=== PATIENT | male | born 1945 | race Caucasian/White ===

== ENCOUNTER 2018-04-21 10:58 | Emergency (ER) | payer MEDICARE ==
[2018-04-21 13:36] VITALS: BP 190/85
--- NOTE | 2018-04-21 14:07 | XRAY Report ---
Reason: fall, pain Procedure Date: 04/21/2018 Accession Number: [id number] / [id number] Procedure: XR - Hip w/Pelvis 2-3V RT CPT Code: FULL RESULT: EXAM: RIGHT HIP RADIOGRAPHY EXAM DATE: 04/21/2018 01:56 PM. CLINICAL HISTORY: Fall, pain. COMPARISON: None. TECHNIQUE: 2 views. 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 There is bone cement around the femoral component of the prosthesis. There is no abnormal lucency at bone hardware interface. There is no fracture. Joints: Alignment appears satisfactory. Soft Tissues: Normal. No soft tissue swelling. IMPRESSION: No acute fracture or subluxation. Right hip hemiarthroplasty. RADIA
--- NOTE | 2018-04-21 14:16 | ED Physician Documentation ---
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 denies: Neck pain, Back pain Neurologic: denies: Generalized weakness PD PAST MEDICAL HISTORY - Present Medications Home Medications: Ambulatory Orders Medication Instructions Recorded Confirmed Atenolol 1 tab PO DAILY 04/21/18 04/21/18 Hydrochlorothiazide 1 tab PO DAILY 04/21/18 04/21/18 Losartan [Cozaar] 1 tab PO DAILY 04/21/18 04/21/18 Omeprazole [PriLOSEC] 20 mg PO DAILY 04/21/18 04/21/18 Oxycodone HCl/Acetaminophen 1 each PO Q6H PRN #7 tablet 04/21/18 [Percocet 5-325 mg Tablet] Simvastatin 10 mg PO DAILY 04/21/18 04/21/18 Tamsulosin HCl [Flomax] 1 tab PO DAILY 04/21/18 04/21/18 - Allergies Allergies/Adverse Reactions: Allergies Allergy/AdvReac Type Severity Reaction Status Date / Time lisinopril AdvReac Unknown Verified 04/21/18 11:14 PD ED PE NORMAL - General General: Alert and oriented X 3, No acute distress - HEENT HEENT: Atraumatic - Respiratory Respiratory: No respiratory distress - Derm Derm: Normal color - Extremities Extremities: Other (The patient has tenderness to palpation of the right hip, there appears to be full active range of motion and the patient is able to ambulate and bear weight. The patient has no tenderness in any of the other major joints. The patient has normal cap refill and normal sensation in the right lower extremity) - Neuro Neuro: Alert and oriented X 3, Normal speech Results - Vitals Vitals: Vital Signs - 24 hr 04/21/18 04/21/18 11:09 13:36 Temperature 37.0 C Heart Rate 74 88 Respiratory 16 18 Rate Blood Pressure 167/77 H 190/85 H O2 Saturation 91 L 98 Oxygen O2 Source Room air - Rads (name of study) XR hip Radiology: Final report received, See rad report (IMPRESSION: No acute fracture or subluxation. Right hip hemiarthroplasty. ) PD MEDICAL DECISION MAKING - ED course ED course: No acute injury that would necessitate transfer or orthopedic consultation emergently. The patient appears appropriate for discharge and ongoing outpatient management. I recommended follow-up with primary care for possible physical therapy. The patient requested narcotic pain medication since Motrin was not working. I agreed to provide a 2-day course to help with the acute pain. I discussed warning signs and recommended returning for any worsening or any concerns Departure - Departure Disposition: 01 Home, Self Care Clinical Impression: Contusion, hip Qualifiers: Encounter type: initial encounter Laterality: unspecified laterality Qualified Code(s): S70.00XA - Contusion of unspecified hip, initial encounter Condition: Good Instructions: ED Contusion Lower Extr Ch Follow-Up: Waldo Ross MD [Primary Care Provider] - Within 1 week Prescriptions: Oxycodone HCl/Acetaminophen [Percocet 5-325 mg Tablet] 1 each PO Q6H PRN #7 tablet PRN Reason: pain Comments: Please return to the emergency department for worsening symptoms or any concerns
== END 2018-04-21 14:37 | disposition home or self-care (01) ==
LOC: ED 10:58
DX: S70.01XA Contusion of right hip, initial encounter (principal); W01.0XXA Fall on same level from slipping, tripping and stumbling without subsequent striking against object, initial encounter; Y92.009 Unspecified place in unspecified non-institutional (private) residence as the place of occurrence of the external cause; Z96.641 Presence of right artificial hip joint
CPT/HCPCS: 99283